=== PATIENT | male | born 1980 | race Caucasian/White ===

== ENCOUNTER 2021-03-16 13:38 | Emergency (ER) | payer MEDICAID, SELFPAY ==
[2021-03-16 13:46] VITALS: PULSE 106; TEMP 36.9; O2SAT 93
--- NOTE | 2021-03-16 14:21 | NUR.NOTE ---
Attempted to do secondary survey and additional information and patient refusing to speak at this time. States he will answer more questions once his mother arrives. He spoke to her a short-time ago and she is coming from [place]. Pt does deny any thoughts of hurting himself or others. Nursing Note:
--- NOTE | 2021-03-16 14:31 | ED.GENADUL_ITS ---
Discharge Plan Disposition Patient Disposition: HOME Condition: Stable Discharge Details Clinical Impression: Paranoia Primary Care Provider: Unknown,Unknown ED Provider: Chloe Thomas Home Meds and New Rx's Prescriptions: Continued divalproex 500 mg tablet extended release 24 hr 1,500 mg PO DAILY RF: 0 fluoxetine 10 mg capsule 10 mg PO DAILY RF: 0 Vyvanse 50 mg capsule 50 mg PO DAILY RF: 0 Discharge Instructions Instructions: Anxiety (ED) Additional Instructions: Continue your regular medications as directed until you follow-up with your psychiatrist Dr. Turner. [facility] services will follow up with you for reevaluation. Return immediately to the emergency department if you develop any worsening or new concerning symptoms. Discharge Data Discharge Date/Time-TO BE ENTERED AT DEPARTURE: 03/17/21 15:40 Discharge Physician: Chloe Thomas Medical Decision Making <Lucas Brown NP - Last Filed: 03/17/21 08:44> Patient presenting to the emergency department via [facility] police. Upon triage report patient is stating paranoia about somebody trying to get him but upon my questioning he will not answer any my questions tell his mother is present. Denies any suicidal or homicidal ideations at this time. At arrival patient is requesting half a tablet of Ativan for anxiety. I feel that this request is reasonable given patient paranoid appearance and pending mother's arrival. Until mother's arrival patient will not allow physical exam or blood work to be performed. 1600-patient signed out to Dr. Bobby Fernandes pending mother's arrival and full evaluation and laboratory work-up as needed. <Bobby Fernandes MD - Last Filed: 03/20/21 07:53> 1805??patient initially seen by lorna Kaye signed out with plan to reassess patient after his mom arrives. Patient has not been forthcoming with history and exam and requested a small be present. Per KRISTYN Brown, patient not homicidal or suicidal. Concern for psychosis. Apparently patient has not slept in days. I evaluated the patient and spoke with his mother. She is concerned about significant new onset paranoia and delusional thought over the past few days. She notes has been stressed at work with interaction with coworker. She states she spoke with him yesterday and noted that he was expressing thoughts that people are trying to harm him and also exhibited hallucinations regarding interactions with her and his brother. Screening labs which revealed mild leukocytosis. No significant electrolyte abnormalities. Alcohol level is normal. Valproic acid level is subtherapeutic at 13. Urine drug screen is pending. Plan will be for crisis screening. 1899 -- Patient not willing to engage with crisis screener. Patient is somnolent at this time and wants to sleep. Mother does note remote brain injury and was being followed by neurology at [facility] for seizure. Apparently there was plan for MRI brain? and mother not sure if this study was performed. Will obtain CT head. I will give depakote 1500mg ER qHS as prescribed. 1914 --I reviewed [facility] neurology office visit from 08/16/2020 that notes patient has a history of depression, TBI, generalized epilepsy with abnormalities noted on EEG and a normal MRI 2000. MRI attempted in 2020 but was unable because of claustrophobia and anxiety. <Nick Wilkes MD - Last Filed: 03/17/21 00:02> spoke with mom and patient, patient for 3 days hasn't slept and has been paranoid per the mother thinking people are out to get him and stated people shot up his house despite this not being true. Patient is awake and caox4, no focal deficits, is showing thoughts of paranoia stating he's not going to give specific names. When asked if he would talk to a crisis screener he was initially hesitant as he didn't want people to know him and didn't want to give out specific names. AFter discussion that this was fine and that his mother would stay in the room with him he is willing to speak with crisis screener pt willing to go to [facility] as he has specialists there he has seen in the past and is willing to be voluntary. He is not having any si/hi or aggressiveness here so cpso ordered. He states he is too scared to go upstairs currently due to his paranoia so will stay in the ED currently <Chloe Thomas DO - Last Filed: 03/18/21 17:23> 0800 --Case endorsed to continue to monitor while awaiting placement. 0900 -- [facility] called to state that no medical bed available as patient would need a medical bed due to his history of seizures. 1400 -- Mental health discussed with patient and he declines any other facility other than [facility]. As patient has continued to deny SI or HI, there is no indication to hold him here any further. Patient is cleared for discharge to home. Nela from mental health discussed with patient's mother and she is declining to pick him up. Patient states he has an apartment to go to but he is fearful that there is someone there waiting to kill me. Discussed with care management and whether there could potentially be a police escort for police waiting there to check on his safety at home. Asheligh Taylor called [place] and [facility] but no one available. Discussed with patient that he can call police department or 1 if he has any acute concerns at home. [facility] human services will follow up with patient for reevaluation. Plan discussed with patient's mom over the phone and she reached out again but patient would not speak to her. Patient placed on care management list to make sure patient has a follow-up appointment with a psychiatrist Dr. Turner for medication management. HPI <Lucas Brown NP - Last Filed: 03/17/21 08:44> General Mode of arrival: ambulatory (with state police) . Date/Time Provider Initiated Documentation: 03/16/21 14:00 . Limitations to Documentation: altered mental status . Information obtained by: patient, family and police . HPI Narrative: Patient presenting to emergency department for evaluation. Patient arrived by [facility] police. Per triage report patient is paranoid that people are following him or watching him. Her Related Data Home Medications Medication Instructions Recorded Confirmed Vyvanse 50 mg PO DAILY 03/16/21 03/16/21 divalproex 1,500 mg PO DAILY 03/16/21 03/16/21 fluoxetine 10 mg PO DAILY 03/16/21 03/16/21 Allergies Allergy/AdvReac Type Severity Reaction Status Date / Time Penicillins Allergy Unverified 03/16/21 16:16 General Stated Complaint: PsychEval DANIEL: 2 Review of Systems <Lucas Brown NP - Last Filed: 03/17/21 08:44> Unobtainable due to mental condition PFSH <Lucas Brown NP - Last Filed: 03/17/21 08:44> Medical History (Updated 03/17/21 @ 09:05 by JESSICA Berman ADHD Depression Paranoia Seizure disorder Social History Smoking/Tobacco Use Status: Current every day Smoking risk assessment performed?: Yes Alcohol Intake: current Alcohol Intake frequency: a few times a week Alcohol type: beer Drug use: Never Substance use type: does not use Do you feel safe at home: No Exam <Lucas Brown NP - Last Filed: 03/17/21 08:44> Const General: no acute distress and anxious Resp Effort & Inspection: normal respiratory effort Neuro General: patient alert and patient awake Psych Appearance: disheveled Mood: anxious mood Affect: anxious affect and indifferent Attitude: guarded and avoids eye contact Thought Content: no homicidality and suicidality Course <Lucas Brown NP - Last Filed: 03/17/21 08:44> Vital Signs Vital signs: Vital Signs Temperature 36.9 C 03/16/21 13:46 Pulse 106 H 03/16/21 13:46 Pulse Oximetry 93 03/16/21 13:46 Temperature 36.9 C 03/16/21 13:46 Temperature Source Temporal Artery Scan 03/16/21 13:46 Pulse 106 H 03/16/21 13:46 Pulse Oximetry 93 03/16/21 13:46 Oxygen Delivery Method Room Air 03/16/21 13:46 Oxygen Flow Rate 0 03/16/21 13:46 Pain Level 0 03/16/21 13:46 Sign Out <Lucas Brown NP - Last Filed: 03/17/21 08:44> Sign Out Data: Sign Out Comment: Signed out to Dr. Bobby Fernandes pending patient's mother arrival for further thorough examination and HPI of condition along with labs and consideration of mental health evaluation. Last updated by Lucas Brown NP at 03/16/21 15:59 Sign Out Comment: Follow-up CT. Crisis evaluation pending. Last updated by Bobby Fernandes MD at 03/16/21 19:43 Sign Out Comment: paranoid, voluntary currently. Last updated by Nick Wilkes MD at 03/17/21 00:03
[2021-03-16 16:36] LABS: Abs Immature Grans 0.02 10^3/uL (0.0-0.06); Absolute Basophil Count 0.05 10^3/uL (0.0-0.2); Absolute Lymphocyte Count 2.56 10^3/uL (1.2-3.4); Absolute Monocyte Count 1.11 10^3/uL (0.1-0.8); Absolute Neutrophil Count 7.77 10^3/uL (1.2-6.7); Basophils % 0.4; Eosinophils % 0.3; HCT 46.4 % (40.0-50.0); HGB 15.3 g/dL (13.5-17.5); Immature Grans % 0.2; Lymphocytes % 22.2; MCH 32.5 pg (27.0-33.0); MCV 98.5 fL (80-95); MPV 10.9 fL (8.0-11.0); Monocytes % 9.6; Neutrophils % 67.3; Nucleated RBC 0 %; Platelet Count 282 10^3/uL (130-400); RBC 4.71 10^6/uL (4.36-5.78); RDW 12.2 % (11.8-14.1); RDW-SD 44.3 fL; WBC 11.55 10^3/uL (4.4-10.8)
--- NOTE | 2021-03-16 16:39 | NUR.NOTE ---
Pt's mother arrived, patient allowed full triage and blood draw. Nursing Note:
[2021-03-16 16:41] LABS: Absolute Eosinophil Count 0.03 10^3/uL (0.0-0.7)
[2021-03-16 16:57] LABS: ALT 64 U/L (16-63); AST 36 U/L (15-37); Albumin 4.7 g/dL (3.4-5.0); Alkaline Phosphatase 82 U/L (46-116); Anion Gap 11.5 mmol/L (3-11); BUN 19 mg/dL (7-18); Bilirubin, Total 0.8 mg/dL (0.2-1.0); CO2 25.5 mmol/L (21.0-32.0); CREATININE 1.1 mg/dL (0.70-1.30); Calcium 9.7 mg/dL (8.5-10.1); Chloride 97 mmol/L (98-107); Glucose 96 mg/dL (74-106); Potassium 4.1 mmol/L (3.5-5.1); Sodium 134 mmol/L (136-145); TSH (W/Ref FT4) 1.95 uIU/mL (0.36-3.74); Total Protein 8.1 g/dL (6.4-8.2)
[2021-03-16 17:09] LABS: VALPROIC ACID 13.3 ug/mL
[2021-03-16 17:11] LABS: ETHANOL BLOOD < 3.0 mg/dL (<10)
[2021-03-16 17:13] LABS: Acetaminophen < 2 ug/mL (10-30); Salicylate 3.5 mg/dL (<2.8)
--- NOTE | 2021-03-16 18:30 | DI.CT_ITS ---
Exam(s) CT HEAD WO EXAM: CT HEAD WO CLINICAL HISTORY: altered. TECHNIQUE: Imaging Protocol: Axial computed tomography images with coronal and sagittal reformatted images were created and reviewed COMPARISON: No exams were available for comparison FINDINGS: There are no skull fractures nor fluid in the visualized paranasal sinuses. There is no evidence of intracranial hemorrhage, mass effect, or shift of midline structures. There are no extra-axial fluid collections. The ventricles are not enlarged or shifted and there is no blo od within the ventricular system nor within the basal cisterns. IMPRESSION: No acute intracranial findings on this noninfused CT scan of the brain. RADIATION DOSE DELIVERED: 799.16mGy.cm Total DLP DATA REPOSITORY: All CT scans at this facility are submitted to the National Radiology Data Registry (NRDR) Dose Index Registry (DIR) with the [employer] (A[employer]). RADIATION OPTIMIZATION: All CT scans at this facility use at least one of these dose optimization te chniques: automated exposure control; mA and/or kV adjustment per patient size (includes targeted exa ms where dose is matched to clinical indication); or iterative reconstruction.
--- NOTE | 2021-03-16 19:05 | PDOC.MHCN ---
Date of service: 03/16/21 Time of Service: 18:15 Mental Health Crisis Note Presenting Issue How did you arrive at the ED and why did you come: Patient arrived to ED with report of feeling 'scared' (per ED admit note), stating that people were tracking his phone via GPS, and requesting ativan. Precipitating Factors Patient presented lying on side with eyes closed and dismissively waved his hands at verbal prompts. He declined to engage. Disposition BEHAVIOR: Did not engage EYE CONTACT: Poor MOOD: Unable to assess AFFECT: Withdrawn APPETITE: N/A SLEEP(trouble falling/staying asleep: N/A Plan Unable to complete assessment and disposition recommendation due to patient not engaging. No SI/HI or unsafe behaviors indicated on admit note or from consultation with ED provider; insufficient evidence to pursue mental health emergency examination at this time. Signature Clinician's Name/Title: Nigel Barclay [facility] clinician / [facility]
[2021-03-16 19:24] LABS: Bilirubin Negative (Negative); Blood Negative (Negative); Clarity Clear (Clear); Glucose Negative (Negative); Ketones 40 mg/dL (Negative); Leukocyte Esterase Negative (Negative); Nitrite Negative (Negative); Specific Gravity 1.015 (1.005-1.025); Urobilinogen 0.2 EU/dL (Up TO 0.2); pH 5.5 (5-8)
[2021-03-16 19:48] LABS: *AMPHETAMINES SCREEN URINE Negative (Negative); *BARBITURATES SCREEN URINE Negative (Negative); *BENZODIAZEPINES SCREEN URINE Negative (Negative); Cannabinoids THC Negative (Negative); Cocaine Screen,Urine Negative (Negative); METHADONE URINE SCREEN Negative (Negative); OPIATES URINE SCREEN Negative (Negative)
--- NOTE | 2021-03-16 19:55 | DI.VRAD_ITS ---
PROCEDURE INFORMATION: Exam: CT Head Without Contrast Exam date and time: 03/16/2021 6:40 PM Age: 41 years old Clinical indication: Altered mental status/memory loss TECHNIQUE: Imaging protocol: Computed tomography of the head without contrast. COMPARISON: No relevant prior studies available. FINDINGS: Brain: No evidence for acute transcortical infarct. No mass effect or midline shift. No extra-axial collection. No acute intracranial hemorrhage. Basal cisterns are patent. Cerebral ventricles: No ventriculomegaly. Paranasal sinuses: Visualized sinuses are unremarkable. No fluid levels. Mastoid air cells: Visualized mastoid air cells are well aerated. Bones/joints: Unremarkable. No acute fracture. Soft tissues: Unremarkable. IMPRESSION: No evidence for acute transcortical infarct, acute intracranial hemorrhage, or mass effect. Dictated and Authenticated by: Abundio Jimenez MD. Ordering:MERY Rosales MD
[2021-03-16 20:00] LABS: Tricyclic Antidepressants Negative (Negative)
[2021-03-16] MEDS: Divalproex Sodium 250 MG TAB.ER.24H 1500 MG PO (22:00)
[2021-03-16 22:05] VITALS: TEMP 37.1
[2021-03-16] MEDS: LORazepam 1 MG TAB PO (23:28)
--- NOTE | 2021-03-17 00:27 | PDOC.MHCN ---
Date of service: 03/16/21 Time of Service: 18:00 Mental Health Crisis Note Presenting Issue How did you arrive at the ED and why did you come: [facility] requested a screening of the client in the ED - Client arrived reporting delusions and stated that he hadn't slept in three days. Precipitating Factors Client reported that he was not experiencing SI but, felt that he could harm others if he didnt get the help that he needed but, he reported he wouldn't do this until he felt safe and he reported that the hospital makes him feel unsafe. Disposition BEHAVIOR: Lethargic, avoiding and paranoid EYE CONTACT: Minimal - refused to look in the camera on multiple prompts MOOD: depressed and paranoid APPETITE: Reported that he was starving despite having food when being admitted into the ED SLEEP(trouble falling/staying asleep: CLient reported to state police that interacted with him earlier that he hadn't slept in three days Plan No plan Signature Clinician's Name/Title: Cuca Macdonald
--- NOTE | 2021-03-17 05:52 | SUR.PHASEI ---
pt eating and went to bathroom
[2021-03-17 06:20] LABS: VALPROIC ACID 56.9 ug/mL
--- NOTE | 2021-03-17 07:37 | NUR.NOTE ---
Nursing Note: Mother's contact numbers: cell [phone] home [phone]
[2021-03-17 07:45] VITALS: BP 111/72; PULSE 91; RESP 25; TEMP 36.7; O2SAT 92
[2021-03-17 07:45] LABS: Source Nasal/Nares
[2021-03-17 08:24] LABS: COVID-19 PCR Negative (Negative)
[2021-03-17] MEDS: Divalproex 500 MG TABEC 1500 MG PO (09:09)
--- NOTE | 2021-03-17 09:13 | NUR.NOTE ---
declines prozac, states he has not been on it very long, this could be the source of his problems right now and the pill does not look like the prozac that he has been taking.Nursing Note:
--- NOTE | 2021-03-17 11:22 | NUR.NOTE ---
[facility] Ariel Matiasda called stating that due to the history of epilepsy of the patient, he would need a medical bed in their unit. At this time they do not have a medical bed on their unit so they are unable to take him right now. [facility] has been notified. Sasha Robles Nursing Note:
--- NOTE | 2021-03-17 12:45 | NUR.NOTE ---
pt provided with meal tray continues to refuse prozac Nursing Note:
[2021-03-17 15:25] VITALS: BP 114/78; PULSE 93; RESP 16; TEMP 37; O2SAT 95
--- NOTE | 2021-03-17 15:36 | NUR.NOTE ---
Nursing Note: PT INFO GIVEN TO CARE MANAGMENT TO ESTABLISH CARE AND TO DISCUSS MENTAL HEALTH. NEEDS TO BE SEEN [facility]
== END 2021-03-17 15:40 | disposition home or self-care (01) ==
PROVIDERS: Emergency Medicine; Nurse Practitioner Family; Emergency Provider Physician Assistant
DX: F22 Delusional disorders (principal); R41.82 Altered mental status, unspecified
CPT/HCPCS: 80053; 80307; 87635; 99285; 70450; 80164; 80320; 80329; 81003; 84443; 85025; 99284

== ENCOUNTER 2021-03-26 00:59 | Outpatient (CLI) | payer MEDICAID, SELFPAY | END 2021-03-26 01:19 | PROVIDERS: Visit Provider Internal Medicine ==

== ENCOUNTER 2021-04-05 14:52 | Emergency (ER) | payer MEDICAID, SELFPAY ==
[2021-04-05 15:02] VITALS: BP 153/106; PULSE 118; RESP 16; TEMP 37; O2SAT 96
--- NOTE | 2021-04-05 15:41 | ED.GENADUL_ITS ---
Discharge Plan Disposition Patient Disposition: AGAINST MEDICAL ADVICE Condition: Stable Discharge Details Chief Complaint: GenMedical Clinical Impression: Encounter for medical assessment Primary Care Provider: Unknown,Unknown ED Provider: Brandon Carvalho Home Meds and New Rx's Prescriptions: No Action divalproex 500 mg tablet extended release 24 hr 1,500 mg PO DAILY RF: 0 fluoxetine 10 mg capsule 10 mg PO DAILY RF: 0 Vyvanse 50 mg capsule 50 mg PO DAILY RF: 0 Medical Decision Making This is a 41-year-old male with a past medical history of depression, paranoia, seizure disorder on Depakote, presents today for evaluation/medical assessment. Per EMS patient was feeling somewhat jittery at home, he called 911, upon their evaluation he stated to them that he was concerned that he might have a seizure in the future. They asked him if he had taken his Depakote, and patient states that he had missed a few days. EMS had the patient take his regular daily dose of Depakote there at home, and then the patient was brought in for assessment per patient request. Upon arrival to the ER the patient was notably stable and upon triage stated that he did not want any medical evaluation versus mother was here. We did look into patient records, he has not the patient's contact for a nd both access and nursing staff were unable to find the patient's mother's phone number. The patient himself did not recall her phone number, and did not provide it to was on his cell phone when asked. Currently the patient denies any complaints. He does admit to missing a few doses of his seizure medications but did take today's dose with EMS. He denies any falls or trauma. He denies any IV or illicit drug use right now. He has no other complaints at this time. Patient refused any examination by provider and nursing staff. However from direct observation I was able to observe that the patient was breathing easily, had no tachypnea, showed no signs of respiratory distress. All extremities move well, and he demonstrated good coordination. He showed no evidence of significant neurologic imbalance. His mentation appears stable. Patient refused any other medical assessment. With no ability to contact the patient's mother patient continued to refuse to be evaluated. He stated I know my rights, I am able to make my own decisions, I do not consent to you evaluating me at this time. Verbally I discussed with the patient that this certainly holds significant risk, the most serious risk would be me not being able to evaluate for a life-threatening etiology. Patient verbalized understanding of this. Patient made it clear that he wanted to go and did not want to be assessed any further. We did offer to help the patient get a ride, and I made it unequivocally clear that he can return anytime he wants for full and complete evaluation. RCT. Was called for the patient. Patient left against per recommendations and without being fully triaged and assessed per patient demand. HPI General Date/Time Provider Initiated Documentation: 04/05/21 14:54 . HPI Narrative: This is a 41-year-old male with a past medical history of depression, paranoia, seizure disorder on Depakote, presents today for evaluation/medical assessment. Per EMS patient was feeling somewhat jittery at home, he called 911, upon their evaluation he stated to them that he was concerned that he might have a seizure in the future. They asked him if he had taken his Depakote, and patient states that he had missed a few days. EMS had the patient take his regular daily dose of Depakote there at home, and then the patient was brought in for assessment per patient request. Upon arrival to the ER the patient was notably stable and upon triage stated that he did not want any medical evaluation versus mother was here. We did look into patient records, he has not the patient's contact for and both access and nursing staff were unable to find the patient's mother's phone number. The patient himself did not recall her phone number, and did not provide it to was on his cell phone when asked. Currently the patient denies any complaints. He does admit to missing a few doses of his seizure medications but did take today's dose with EMS. He denies any falls or trauma. He denies any IV or illicit drug use right now. He has no other complaints at this time. Related Data Home Medications Medication Instructions Recorded Confirmed Vyvanse 50 mg PO DAILY 03/16/21 04/05/21 divalproex 1,500 mg PO DAILY 03/16/21 04/05/21 fluoxetine 10 mg PO DAILY 03/16/21 03/16/21 Allergies Allergy/AdvReac Type Severity Reaction Status Date / Time Penicillins Allergy Unverified 04/05/21 15:10 lamotrigine [From Lamictal] AdvReac Unknown Unverified 04/05/21 15:11 General Stated Complaint: GenMedical DANIEL: 3 Review of Systems All systems reviewed & are unremarkable except as noted in HPI and below PFSH All Active Problems (Updated 04/05/21 @ 15:51 by Brandon Carvalho DO) Encounter for medical assessment (Acute) Medical History ADHD Depression Paranoia Seizure disorder Social History Smoking/Tobacco Use Status: Current every day Smoking risk assessment performed?: Yes Alcohol Intake: current Alcohol Intake frequency: a few times a week Alcohol type: beer Drug use: Never Substance use type: does not use Exam Narrative Exam Narrative: Patient refused any examination by provider and nursing staff. However from direct observation I was able to observe that the patient was breathing easily, had no tachypnea, showed no signs of respiratory distress. All extremities move well, and he demonstrated good coordination. He showed no evidence of significant neurologic imbalance. His mentation appears stable. Patient refused any other medical assessment. Course Vital Signs Vital signs: Vital Signs Temperature 37 C 04/05/21 15:02 Pulse 118 H 04/05/21 15:02 Respiratory Rate 16 04/05/21 15:02 Blood Pressure 153/106 H 04/05/21 15:02 Pulse Oximetry 96 04/05/21 15:02 Temperature 37 C 04/05/21 15:02 Temperature Source Skin 04/05/21 15:02 Pulse 118 H 04/05/21 15:02 Respiratory Rate 16 04/05/21 15:02 Respiratory Effort 04/05/21 15:20 Blood Pressure 153/106 H 04/05/21 15:02 Blood Pressure Position Sitting 04/05/21 15:02 Pulse Oximetry 96 04/05/21 15:02 Oxygen Delivery Method Room Air 04/05/21 15:02 Oxygen Flow Rate 0 04/05/21 15:02 Pain Level 0 04/05/21 15:02
== END 2021-04-05 15:20 | disposition left against medical advice (07) ==
LOC: ER 16:01
PROVIDERS: Emergency Provider Student in an Organized Health Care Education/Training Program
DX: G40.909 Epilepsy, unspecified, not intractable, without status epilepticus (principal); Z91.14 Patient's other noncompliance with medication regimen; Z53.21 Procedure and treatment not carried out due to patient leaving prior to being seen by health care provider
CPT/HCPCS: 99283; 99282

== ENCOUNTER 2021-04-05 20:10 | Emergency (ER) | payer MEDICAID, SELFPAY ==
[2021-04-05 20:10] VITALS: BP 141/96; PULSE 120; RESP 18; TEMP 36.6; O2SAT 96
--- NOTE | 2021-04-05 20:47 | W.ED.GENAD ---
Discharge Plan Disposition Patient Disposition: HOME Condition: Stable Discharge Details Clinical Impression: Malingering Primary Care Provider: Unknown,Unknown ED Provider: Beatriz Kulkarni Home Meds and New Rx's Prescriptions: No Action divalproex 500 mg tablet extended release 24 hr 1,500 mg PO DAILY RF: 0 Vyvanse 50 mg capsule 50 mg PO DAILY RF: 0 Discharge Instructions Instructions: Anxiety (ED) Additional Instructions: Please call [address] for housing options for tonight. They can also give you transport if you need it to your apartment. We attempted to get you help but you need to be patient. Follow up with primary care provider in 3-5 days. Return to ED sooner if any worsening or concerns. Increase oral fluids. Please take your normal daily previously prescribed medications as instructed. Medical Decision Making 41-year-old male presents to the ER via EMS with a chief complaint of feeling like he is going to have a seizure he was seen here earlier in the emergency department for similar. Report was that he had not taken his Depakote in the last few days. EMS did give him his Depakote dose this morning. Patient reports that he cannot go back to his apartment for unknown reason and he has nowhere to go he is requesting some Ativan and then nap. He denies having any friends or family that he can call. He states that the apartment door locks are probably changed. He denies any pain, no signs of trauma. He denies any suicidal or homicidal ideation. At this time, we are seeking a place for patient to go. Per RN report [facility] is full. Patient is calling [address] to seek resources for emergency overnight intermediate. I spoke with the [address] stiff leg derrick operator, they need to speak with the patient personally, patient given phone to call [address]. Patient given the phone to call [address] multiple times by nurse and patient is not willing to wait on hold. Will DC with a clinical impression of malingering. Encouraged patient to stay and find housing for the night. Patient is requesting to be discharged. Patient was observed for over 2 hours in the department with no seizure activity. Patient was offered [facility] for transport but was unwilling to give an address. This text was generated using [employer]uSiliconation system, please disregard any oddities of phrase or misspellings. HPI General Mode of arrival: EMS. Date/Time Provider Initiated Documentation: 04/05/21 20:20. Information obtained by: patient, RN notes reviewed and old records reviewed. HPI Narrative: 41-year-old male presents to the ER via EMS with a chief complaint of feeling like he is going to have a seizure he was seen here earlier in the emergency department for similar. Report was that he had not taken his Depakote in the last few days. EMS did give him his Depakote dose this morning. Patient reports that he cannot go back to his apartment for unknown reason and he has nowhere to go he is requesting some Ativan and then nap. He denies having any friends or family that he can call. He states that the apartment door locks are probably changed. He denies any pain, no signs of trauma.. Related Data Home Medications Medication Instructions Recorded Confirmed Vyvanse 50 mg PO DAILY 03/16/21 04/05/21 divalproex 1,500 mg PO DAILY 03/16/21 04/05/21 Allergies Allergy/AdvReac Type Severity Reaction Status Date / Time Penicillins Allergy Unverified 04/05/21 20:18 lamotrigine [From Lamictal] AdvReac Unknown Unverified 04/05/21 20:18 General Stated Complaint: GenMedical DANIEL: 3 Review of Systems Constitutional Constitutional: Denies fever(s) and Denies weakness Gastrointestinal Gastrointestinal: Denies diarrhea, Denies nausea and Denies vomiting Neurologic Neurologic: Denies weakness Psychiatric Psychiatric: Reports anxiety, Reports paranoia, Denies homicidal ideation and Denies suicidal ideation PFSH All Active Problems (Updated 04/05/21 @ 22:56 by Beatriz Kulkarni) Encounter for medical assessment (Acute) Malingering (Acute) Medical History ADHD Depression Paranoia Seizure disorder Social History Smoking/Tobacco Use Status: Current every day Tobacco Type: cigarettes Smoking risk assessment performed?: Yes Alcohol Intake: current Alcohol Intake frequency: a few times a week Alcohol type: beer Drug use: Never Substance use type: does not use Additional Social history: Does not feel his apartment is safe to go back to [facility]. Will not say why. Exam Narrative Exam Narrative: Constitutional: Alert and oriented x3. Appears stated age. Normal body habitus. Head: Normocephalic, no trauma. Eyes: Pupils PERRL, Red reflex noted, EOM's intact. Eyelids symmetrical without lesions, discharge, or swelling. ENT: Bilateral TM's WNL, External ear normal to inspection, no mastoid TTP, swelling, or erythema, Nasal turbinates WNL, no nasal discharge. Normal dentition, Posterior pharynx WNL, no exudate. Chest: RRR, Normal S1, S2, distal pulses intact. Resp: Lungs clear to auscultation bilaterally, no wheezes, rales, or rhonchi. Abdomen: Soft, non-distended, Normoactive bowel sounds all 4 quads. Musculoskeletal: Normal gait, 5/5 strength to all four extremities. Skin: No suspicious rashes or lesions. Capillary refill less than 2 sec. Neurologic: Cranial nerves II-XII intact. Alert and oriented x 3. Motor: No deficits noted. Sensory: Intact bilaterally all 4 extremities. Reflexes: DTR's intact bilaterally.. Hematologic/Lymphatic: No ecchymosis, no lymphadenopathy. Psych Speech and Movement: agitated Mood: anxious mood and paranoid Affect: anxious affect Attitude: guarded Thought Content: phobias Insight: fair Judgment: fair Course Vital Signs Vital signs: Vital Signs Temperature 36.6 C 04/05/21 20:10 Pulse 120 H 04/05/21 20:10 Respiratory Rate 18 04/05/21 20:10 Blood Pressure 141/96 H 04/05/21 20:10 Pulse Oximetry 96 04/05/21 20:10 Temperature 36.6 C 04/05/21 20:10 Temperature Source Skin 04/05/21 20:10 Pulse 120 H 04/05/21 20:10 Respiratory Rate 18 04/05/21 20:10 Blood Pressure 141/96 H 04/05/21 20:10 Blood Pressure Position Sitting 04/05/21 20:10 Pulse Oximetry 96 04/05/21 20:10 Oxygen Delivery Method Room Air 04/05/21 20:10 Oxygen Flow Rate 0 04/05/21 20:10
== END 2021-04-06 00:54 | disposition home or self-care (01) ==
PROVIDERS: Emergency Provider Registered Nurse Emergency
DX: F41.9 Anxiety disorder, unspecified (principal); Z76.5 Malingerer [conscious simulation]
CPT/HCPCS: 99283

== ENCOUNTER 2021-04-06 04:15 | Emergency (ER) | payer MEDICAID, SELFPAY ==
[2021-04-06] VITALS (73 sets, daily range): BP systolic 98–132; BP diastolic 52–93; PULSE 83–119; RESP 0–27; TEMP 36.4–36.8; O2SAT 87–99
--- NOTE | 2021-04-06 04:25 | ED.GENADUL_ITS ---
Discharge Plan Disposition Patient Disposition: HOME Condition: Stable Discharge Details Clinical Impression: Dehydration, Exposure to environmental cold Primary Care Provider: Unknown,Unknown ED Provider: Chloe Thomas Home Meds and New Rx's Prescriptions: Continued divalproex 500 mg tablet extended release 24 hr 1,500 mg PO DAILY RF: 0 Vyvanse 50 mg capsule 50 mg PO DAILY RF: 0 Discharge Instructions Instructions: Dehydration (ED) Additional Instructions: Drink plenty of fluids and get plenty of rest. Continue your regular medications as directed. Follow-up with your primary care doctor in 1 week. Return to the emergency department with any worsening or new concerning symptoms. Discharge Data Discharge Date/Time-TO BE ENTERED AT DEPARTURE: 04/06/21 13:19 Discharge Physician: Chloe Thomas Medical Decision Making <Raghavendra Almonte MD - Last Filed: 04/06/21 07:27> Patient presenting with cold exposure after leaving ED waiting room at some point tonight after discharge. Review of his records shows that he was here over [place] for a couple of days with mental health evaluation due to paranoia. Ultimately discharged to follow-up with [facility] services. It would appear given the patient's two visits to the ED yesterday that he is still suffering from paranoia. It is unclear whether he is followed up with mental health. At this point he was found outside in the frigid cold and arrives here shivering uncontrollably. No overt evidence of frostbite at this time. Oral temperature found to be normal. Refuses rectal temperature. IV established and warm fluids given. Laboratory studies obtained. Ativan given to help with shivering and to calm him down. Bear hugger applied. Need to strongly consider repeat mental health evaluation. I am concerned regarding patient's judgment and insight at this point. For now we will need to allow patient to warm up, check labs and medically clear prior to mental health eval. Patient's labs are okay. He has a little bit of anion gap with low bicarb and elevated creatinine which should respond to fluids. Alcohol is negative. Head CT from [place] unremarkable and not repeated. He has been sound asleep since the Ativan. Will plan sign out and once awake and able to should have repeat mental health evaluation. Medical Records Medical records reviewed: Yes I reviewed the patient's medical records. Lab Data Lab results reviewed: Yes I reviewed the patient's lab results. <Chloe Thomas DO - Last Filed: 04/06/21 18:42> 0800 --please see Dr. Almonte's note for initial presentation, exam and plan. Case endorsed with plan for evaluation by mental health once patient more awake and alert. 1030 --repeat BMP obtained and within normal limits. Patient briefly spoke to mental health and stated I do not need anything from you. Patient is still drowsy potentially after the ativan but arousable and oriented x3. He reiterates again what he had stated yesterday that he is concerned about having a seizure. He states he has been taking his Vyvanse and Depakote. We will check a Depakote level. We will have patient attempt to ambulate and eat and reassess. 1230 --Depakote level within normal limits. Patient was given his Depakote dose here which he states he takes in the afternoon. He was able to eat and ambulate and remains oriented. Patient states he can stay in his apartment or at a fri [facility]'s house. Will call [facility] for transportation. Advised to follow up with the primary care doctor for re-evaluation. Usual and customary return precautions given prior to discharge. Medical Records Medical records reviewed: Yes I reviewed the patient's medical records. Lab Data Lab results reviewed: Yes I reviewed the patient's lab results. Labs: Laboratory Tests Range/Units 04/06/21 04/06/21 04/06/21 04:25 04:25 04:25 WBC (4.4-10.8) 10^3/uL 10.94 H RBC (4.36-5.78) 10^6/uL 4.75 Hgb (13.5-17.5) g/dL 15.5 Hct (40.0-50.0) % 45.6 MCV (80-95) fL 96.0 H MCH (27.0-33.0) pg 32.6 MCHC (32.0-36.0) % 34.0 RDW (11.8-14.1) % 11.9 Plt Count (130-400) 10^3/uL 305 MPV (8.0-11.0) fL 11.6 H Immature Gran % 0.3 Neutrophils % 59.1 Lymphocytes % 30.3 Monocytes % 8.2 Eosinophils % 1.6 Basophils % 0.5 Nucleated RBC % % 0 Absolute Neutrophils (1.2-6.7) 10^3/uL 6.47 Absolute Lymphocytes (1.2-3.4) 10^3/uL 3.31 Absolute Monocytes (0.1-0.8) 10^3/uL 0.90 H Absolute Eosinophils (0.0-0.7) 10^3/uL 0.18 Absolute Basophils (0.0-0.2) 10^3/uL 0.05 Sodium (136-145) mmol/L 138 Potassium (3.5-5.1) mmol/L 3.7 Chloride (98-107) mmol/L 102 Carbon Dioxide (21.0-32.0) mmol/L 19.7 L Anion Gap (3-11) mmol/L 16.3 H BUN (7-18) mg/dL 17 Creatinine (0.70-1.30) mg/dL 1.5 H Estimated GFR/1.73 m2 (mL/min/1.73m2) 51.32 Glucose (74-106) mg/dL 133 H Calcium (8.5-10.1) mg/dL 9.4 Total Bilirubin (0.2-1.0) mg/dL 0.3 AST (15-37) U/L 18 ALT (16-63) U/L 29 Alkaline Phosphatase (46-116) U/L 78 Total Protein (6.4-8.2) g/dL 7.8 Albumin (3.4-5.0) g/dL 4.6 TSH (0.36-3.74) uIU/mL 2.91 Urine Opiates Screen (Negative) Urine Methadone Screen (Negative) Ur Barbiturates Screen (Negative) Valproic Acid ( - 150) ug/mL Ur Tricyclics Screen (Negative) Ur Amphetamines Screen (Negative) U Benzodiazepines Scrn (Negative) Urine Cocaine Screen (Negative) Ur THC Screen (Negative) Ethyl Alcohol (<10) mg/dL < 3.0 COVID-19 Source SARS-CoV-2 (PCR) (Negative) Range/Units 04/06/21 04/06/21 04/06/21 05:00 09:02 10:45 WBC (4.4-10.8) 10^3/uL RBC (4.36-5.78) 10^6/uL Hgb (13.5-17.5) g/dL Hct (40.0-50.0) % MCV (80-95) fL MCH (27.0-33.0) pg MCHC (32.0-36.0) % RDW (11.8-14.1) % Plt Count (130-400) 10^3/uL MPV (8.0-11.0) fL Immature Gran % Neutrophils % Lymphocytes % Monocytes % Eosinophils % Basophils % Nucleated RBC % % Absolute Neutrophils (1.2-6.7) 10^3/uL Absolute Lymphocytes (1.2-3.4) 10^3/uL Absolute Monocytes (0.1-0.8) 10^3/uL Absolute Eosinophils (0.0-0.7) 10^3/uL Absolute Basophils (0.0-0.2) 10^3/uL Sodium (136-145) mmol/L 141 Potassium (3.5-5.1) mmol/L 4.0 Chloride (98-107) mmol/L 106 Carbon Dioxide (21.0-32.0) mmol/L 25.4 Anion Gap (3-11) mmol/L 9.6 BUN (7-18) mg/dL 14 Creatinine (0.70-1.30) mg/dL 0.9 D Estimated GFR/1.73 m2 (mL/min/1.73m2) >= 60.00 Glucose (74-106) mg/dL 96 Calcium (8.5-10.1) mg/dL 8.5 Total Bilirubin (0.2-1.0) mg/dL AST (15-37) U/L ALT (16-63) U/L Alkaline Phosphatase (46-116) U/L Total Protein (6.4-8.2) g/dL Albumin (3.4-5.0) g/dL TSH (0.36-3.74) uIU/mL Urine Opiates Screen (Negative) Urine Methadone Screen (Negative) Ur Barbiturates Screen (Negative) Valproic Acid ( - 150) ug/mL 86.6 Ur Tricyclics Screen (Negative) Ur Amphetamines Screen (Negative) U Benzodiazepines Scrn (Negative) Urine Cocaine Screen (Negative) Ur THC Screen (Negative) Ethyl Alcohol (<10) mg/dL COVID-19 Source Nasal/Nares SARS-CoV-2 (PCR) (Negative) Negative Range/Units 04/06/21 11:05 WBC (4.4-10.8) 10^3/uL RBC (4.36-5.78) 10^6/uL Hgb (13.5-17.5) g/dL Hct (40.0-50.0) % MCV (80-95) fL MCH (27.0-33.0) pg MCHC (32.0-36.0) % RDW (11.8-14.1) % Plt Count (130-400) 10^3/uL MPV (8.0-11.0) fL Immature Gran % Neutrophils % Lymphocytes % Monocytes % Eosinophils % Basophils % Nucleated RBC % % Absolute Neutrophils (1.2-6.7) 10^3/uL Absolute Lymphocytes (1.2-3.4) 10^3/uL Absolute Monocytes (0.1-0.8) 10^3/uL Absolute Eosinophils (0.0-0.7) 10^3/uL Absolute Basophils (0.0-0.2) 10^3/uL Sodium (136-145) mmol/L Potassium (3.5-5.1) mmol/L Chloride (98-107) mmol/L Carbon Dioxide (21.0-32.0) mmol/L Anion Gap (3-11) mmol/L BUN (7-18) mg/dL Creatinine (0.70-1.30) mg/dL Estimated GFR/1.73 m2 (mL/min/1.73m2) Glucose (74-106) mg/dL Calcium (8.5-10.1) mg/dL Total Bilirubin (0.2-1.0) mg/dL AST (15-37) U/L ALT (16-63) U/L Alkaline Phosphatase (46-116) U/L Total Protein (6.4-8.2) g/dL Albumin (3.4-5.0) g/dL TSH (0.36-3.74) uIU/mL Urine Opiates Screen (Negative) Negative Urine Methadone Screen (Negative) Negative Ur Barbiturates Screen (Negative) Negative Valproic Acid ( - 150) ug/mL Ur Tricyclics Screen (Negative) Negative Ur Amphetamines Screen (Negative) Positive A U Benzodiazepines Scrn (Negative) Negative Urine Cocaine Screen (Negative) Negative Ur THC Screen (Negative) Negative Ethyl Alcohol (<10) mg/dL COVID-19 Source SARS-CoV-2 (PCR) (Negative) HPI <Raghavendra Almonte MD - Last Filed: 04/06/21 07:27> General Mode of arrival: EMS . Date/Time Provider Initiated Documentation: 04/06/21 04:25 . Information obtained by: patient, EMS, RN notes reviewed and old records reviewed . HPI Narrative: Patient was witnessed by a passerby to be outside seemingly sleeping and covered in samuels. EMS was activated. Patient was found and brought here. Patient has been to this ED twice yesterday. He was in the waiting room as he stated he had no other place to go at last discharge. He apparently has an apartment in [place] but had told previous provider that he could not go back there. Unclear why he was outside as no one from the ED instructed patient that he could not stay in the waiting room given the frigid temperatures outside tonight. In any event he arrives here awake, shivering uncontrollably. He is unable to provide a coherent history as he is too cold to stop shivering or speak. Related Data Home Medications Medication Instructions Recorded Confirmed Vyvanse 50 mg PO DAILY 03/16/21 04/05/21 divalproex 1,500 mg PO DAILY 03/16/21 04/05/21 Allergies Allergy/AdvReac Type Severity Reaction Status Date / Time Penicillins Allergy Unverified 04/06/21 04:27 lamotrigine [From Lamictal] AdvReac Unknown Unverified 04/06/21 04:27 General DANIEL: 3 Review of Systems <Raghavendra Almonte MD - Last Filed: 04/06/21 07:27> Narrative: Unable to obtain due to patient condition PFS <Raghavendra Almonte MD - Last Filed: 04/06/21 07:27> All Active Problems (Updated 04/06/21 @ 12:41 by Chloe Thomas DO) Dehydration (Acute) Exposure to environmental cold (Acute) Paranoia (Acute) Encounter for medical assessment (Acute) Malingering (Acute) Medical History ADHD Depression Seizure disorder Social History Smoking/Tobacco Use Status: Current every day Tobacco Type: cigarettes Smoking risk assessment performed?: Yes Alcohol Intake: current Alcohol Intake frequency: a few times a week Alcohol type: beer Drug use: Never Substance use type: does not use Additional Social history: Does not feel his apartment is safe to go back to [facility]. Will not say why. Exam <Raghavendra Almonte MD - Last Filed: 04/06/21 07:27> Narrative Exam Narrative: Const: WDWN male shivering uncontrollably. HEENT: NC/AT. Normal facial exam. Neck: Supple. Trachea midline. Lungs: Normal respiratory effort. Cor: RRR. Good radial pulses. GI: Soft. ND. Neuro: A+O x 3. Normal speech. Cranial nerves II - XII grossly intact. No gross motor or sensory deficit. Ext: No C/C/E. Skin: Cold. Erythema to hands and feet but no overt frostbite noted. Sign Out <Raghavendra Almnote MD - Last Filed: 04/06/21 07:27> Sign Out Data: Sign Out Comment: Still sleeping from the ativan; needs mental health eval when awake Last updated by Raghavendra Almonte MD at 04/06/21 07:58
[2021-04-06] MEDS: LORazepam 2 MG/ML VIAL 1 MG IVP (04:35)
[2021-04-06] MEDS: Normal Saline 1,000 ML 1000 ML IV (04:35)
[2021-04-06 04:39] LABS: Abs Immature Grans 0.03 10^3/uL (0.0-0.06); Absolute Eosinophil Count 0.18 10^3/uL (0.0-0.7); Absolute Lymphocyte Count 3.31 10^3/uL (1.2-3.4); Basophils % 0.5; Eosinophils % 1.6; HCT 45.6 % (40.0-50.0); HGB 15.5 g/dL (13.5-17.5); Immature Grans % 0.3; Lymphocytes % 30.3; MCH 32.6 pg (27.0-33.0); MPV 11.6 fL (8.0-11.0); Monocytes % 8.2; Neutrophils % 59.1; Nucleated RBC 0 %; Platelet Count 305 10^3/uL (130-400); RBC 4.75 10^6/uL (4.36-5.78); RDW 11.9 % (11.8-14.1); RDW-SD 41.8 fL; WBC 10.94 10^3/uL (4.4-10.8)
[2021-04-06 04:40] LABS: Absolute Basophil Count 0.05 10^3/uL (0.0-0.2); Absolute Neutrophil Count 6.47 10^3/uL (1.2-6.7)
[2021-04-06 04:54] LABS: ALT 29 U/L (16-63); AST 18 U/L (15-37); Albumin 4.6 g/dL (3.4-5.0); Alkaline Phosphatase 78 U/L (46-116); Anion Gap 16.3 mmol/L (3-11); BUN 17 mg/dL (7-18); Bilirubin, Total 0.3 mg/dL (0.2-1.0); CO2 19.7 mmol/L (21.0-32.0); CREATININE 1.5 mg/dL (0.70-1.30); Calcium 9.4 mg/dL (8.5-10.1); Chloride 102 mmol/L (98-107); Estimated GFR 51.32 (mL/min/1.73m2); Glucose 133 mg/dL (74-106); Potassium 3.7 mmol/L (3.5-5.1); Sodium 138 mmol/L (136-145); Total Protein 7.8 g/dL (6.4-8.2)
[2021-04-06 04:55] LABS: ETHANOL BLOOD < 3.0 mg/dL (<10)
[2021-04-06 05:06] LABS: TSH (W/Ref FT4) 2.91 uIU/mL (0.36-3.74)
[2021-04-06 05:06] LABS: Source Nasal/Nares
[2021-04-06] MEDS: Normal Saline 1,000 ML 150 ML IV (06:09)
[2021-04-06 09:31] LABS: Anion Gap 9.6 mmol/L (3-11); BUN 14 mg/dL (7-18); CO2 25.4 mmol/L (21.0-32.0); CREATININE 0.9 mg/dL (0.70-1.30); Calcium 8.5 mg/dL (8.5-10.1); Chloride 106 mmol/L (98-107); Glucose 96 mg/dL (74-106); Sodium 141 mmol/L (136-145)
--- NOTE | 2021-04-06 09:44 | NUR.NOTE ---
pt resting robby vergara still in place awaiting MH consult Nursing Note:
--- NOTE | 2021-04-06 10:26 | NUR.NOTE ---
pt spoke with worker Nursing Note:
[2021-04-06 11:12] LABS: VALPROIC ACID 86.6 ug/mL
[2021-04-06] MEDS: Divalproex Sodium 500 MG TAB.ER.24H 1500 MG PO (11:27)
--- NOTE | 2021-04-06 11:30 | NUR.NOTE ---
pt provided with meal tray Nursing Note:
[2021-04-06 11:53] LABS: *AMPHETAMINES SCREEN URINE Positive (Negative); *BARBITURATES SCREEN URINE Negative (Negative); *BENZODIAZEPINES SCREEN URINE Negative (Negative); Cannabinoids THC Negative (Negative); Cocaine Screen,Urine Negative (Negative); METHADONE URINE SCREEN Negative (Negative); OPIATES URINE SCREEN Negative (Negative); Tricyclic Antidepressants Negative (Negative)
--- NOTE | 2021-04-06 12:01 | NUR.NOTE ---
MD asked that we get patient up and ambulate to see how he does. This person along with DIELECTRIC EMBOSSING MACHINE OPERATOR Student got patient to sit and stand, and ambulate. He was slightly shaky, but did well. No SOB,light headedness,or dizziness.
[2021-04-06 12:35] LABS: COVID-19 PCR Negative (Negative)
== END 2021-04-06 13:19 | disposition home or self-care (01) ==
PROVIDERS: Emergency Medicine; Emergency Provider Physician Assistant
DX: E86.0 Dehydration (principal); T69.8XXA Other specified effects of reduced temperature, initial encounter; Z79.899 Other long term (current) drug therapy; G40.909 Epilepsy, unspecified, not intractable, without status epilepticus; F22 Delusional disorders
CPT/HCPCS: 36415; 80048; 80053; 80307; 87635; 96361; 96374; 99284; 80164; 80320; 84443; 85025; 99283; J2060; J3490